=== PATIENT | male | born 1955 | race Caucasian/White ===

== ENCOUNTER 2017-05-29 07:38 | Day surgery (SDC) | payer MEDICAID ==
[~2017-05-29] VITALS: Ht 175.3 cm; Wt 102.1 kg
[2017-05-29] MEDS ORDERED: TAMS0.4C96 PO (09:04)
[2017-05-29] MEDS ORDERED: HYDR-3292 PO (09:04)
[2017-05-29] MEDS ORDERED: METO50TA69 PO (09:04)
[2017-05-29] MEDS ORDERED: SIMV10TA6 PO (09:04)
[2017-05-29] MEDS ORDERED: LIDOCAINE 2% 100 MG/5 ML UJET TP ONE ×2 (09:33→09:49)
[2017-05-29] MEDS ORDERED: fentaNYL 0.05 MG/ML VIAL ONE (09:48)
[2017-05-29] MEDS ORDERED: MIDAZOLAM 2 MG/2 ML VIAL ONE (09:48)
== END 2017-05-29 10:53 | disposition home or self-care (01) ==
LOC: MDS 07:38 → MMU 07:41 → MDS 10:53
PROVIDERS: ATTEND Internal Medicine Gastroenterology
DX: Z12.11 Encounter for screening for malignant neoplasm of colon (principal); K76.0 Fatty (change of) liver, not elsewhere classified; I10 Essential (primary) hypertension; E78.5 Hyperlipidemia, unspecified; E66.09 Other obesity due to excess calories; Z68.31 Body mass index [BMI] 31.0-31.9, adult; N40.0 Benign prostatic hyperplasia without lower urinary tract symptoms; E78.00 Pure hypercholesterolemia, unspecified; Z90.49 Acquired absence of other specified parts of digestive tract; Z88.8 Allergy status to other drugs, medicaments and biological substances; Z79.02 Long term (current) use of antithrombotics/antiplatelets
CPT/HCPCS: J2250; J3010